=== PATIENT | female | born 1985 | race Caucasian/White ===

== ENCOUNTER 2018-02-10 20:48 | Outpatient (CLI) | payer OTHER | END 2018-02-10 23:12 | disposition home or self-care (01) | LOC: OBT 20:48 → L-D 20:48 → OBT 23:12 | DX: O62.9 Abnormality of forces of labor, unspecified (principal); Z3A.39 39 weeks gestation of pregnancy | CPT/HCPCS: Z7500 ==

== ENCOUNTER 2018-02-13 21:47 | Inpatient (IN) | payer OTHER ==
[2018-02-14] MEDS ORDERED: MISOPROSTOL 200 MCG TAB PR ×2 (01:00→12:00)
[2018-02-14] MEDS ORDERED: BUTORPHANOL 1 MG INJ IV (01:00)
[2018-02-14] MEDS ORDERED: OXYCODONE/ASPIRIN (4.88/325) TAB PO ×3 (01:00→12:00)
[2018-02-14] MEDS ORDERED: IBUPROFEN 600 MG TAB PO (01:00)
[2018-02-14] MEDS ORDERED: OXYTOCIN 30 UNITS/LR 500 ML IV ×3 (01:00→12:00)
[2018-02-14] MEDS ORDERED: CARBOPROST 250 MCG INJ IM ×2 (01:00→12:00)
[2018-02-14] MEDS ORDERED: BUTORPHANOL 2 MG INJ IV (01:00)
[2018-02-14] MEDS: LACTATED RINGER'S 1,000 ML IV ×2 (01:33→07:27)
[2018-02-14 01:39] LABS: RUPTURE FETAL MEMBRANES NEGATIVE (NEGATIVE)
[2018-02-14 01:58] LABS: ADD MAN DIFF? NO
[2018-02-14 02:01] LABS: BASOPHILS % 0.3 % (0.0-2.0); EOSINOPHILS # 0.2 10^3/ul (0.0-0.5); EOSINOPHILS % 1.8 % (0.0-7.0); HEMOGLOBIN 9.7 g/dl (12.0-16.0); LYMPHOCYTES % 23.9 % (15.0-51.0); MEAN CORPUSCULAR HEMOGLOBIN 24.3 pg (29.0-33.0); MEAN CORPUSCULAR HGB CONC 31.3 g/dl (32.0-37.0); MEAN CORPUSCULAR VOLUME 77.7 fl (82.0-101.0); MEAN PLATELET VOLUME 8.9 fl (7.4-10.4); MONOCYTE # 0.6 10^3/ul (0.3-0.9); MONOCYTES % 4.7 % (0.0-11.0); NEUTROPHIL # 8.5 10^3/ul (1.6-7.5); NEUTROPHILS % 68.8 % (39.0-77.0); PLATELET COUNT 389 10^3/UL (140-415); RED BLOOD COUNT 3.99 10^6/ul (4.20-5.40); RED CELL DISTRIBUTION WIDTH 15.4 % (11.5-14.5)
[2018-02-14 02:01] LABS: WHITE BLOOD COUNT 12.4 10^3/ul (4.8-10.8)
[2018-02-14] MEDS: MISOPROSTOL 50 MCG CAPSULE PO ×3 (02:20→09:00)
[2018-02-14 02:21] LABS: INR 0.91; PARTIAL THROMBOPLASTIN TIME 24.5 Sec (23.0-35.0); PROTIME 12.3 Sec (11.9-14.9)
[2018-02-14] MEDS: METHYLERGONOVINE 0.2 MG INJ IM (11:22)
[2018-02-14] MEDS: LIDOCAINE 1% (MPF) 30 ML INJ INJ (11:23)
[2018-02-14] MEDS: OXYTOCIN 30 UNITS/LR 500 ML IV ×3 (11:24→12:42)
[2018-02-14] MEDS ORDERED: METHYLERGONOVINE 0.2 MG INJ IM (12:00)
[2018-02-14] MEDS ORDERED: SENNA/DOCUSATE NA (8.6MG/50MG) TAB PO (12:00)
[2018-02-14] MEDS ORDERED: NACL 0.9% 3 ML SYG IV (12:00)
[2018-02-14] MEDS ORDERED: ONDANSETRON 4 MG INJ IV (12:00)
[2018-02-14] MEDS: IBUPROFEN 600 MG TAB PO ×3 (12:41→23:32)
[2018-02-14 13:14] LABS: HEPATITIS B SURFACE ANTIGEN NEGATIVE (NEGATIVE)
[2018-02-14] MEDS: BENZOCAINE 20% 56 ML SPRAY TOP (15:55)
[2018-02-14] MEDS: WITCH HAZEL/GLYCERIN PAD PR (15:55)
[2018-02-14] MEDS: LANOLIN HPA 1 PKT TOP (15:56)
[2018-02-14] MEDS: SENNA/DOCUSATE NA (8.6MG/50MG) TAB PO (21:17)
[2018-02-14 22:26] LABS: RAPID PLASMA REAGIN NONREACTIVE (NR)
[2018-02-15] MEDS: IBUPROFEN 600 MG TAB PO ×4 (05:34→23:42)
[2018-02-15 07:29] LABS: ADD MAN DIFF? NO
[2018-02-15 07:37] LABS: WHITE BLOOD COUNT 14.1 10^3/ul (4.8-10.8)
[2018-02-15 07:37] LABS: BASOPHIL # 0.1 10^3/ul (0.0-0.1); BASOPHILS % 0.4 % (0.0-2.0); EOSINOPHILS # 0.2 10^3/ul (0.0-0.5); EOSINOPHILS % 1.5 % (0.0-7.0); HEMATOCRIT 28.2 % (37.0-47.0); HEMOGLOBIN 8.8 g/dl (12.0-16.0); LYMPHOCYTES # 3.9 10^3/ul (0.8-2.9); LYMPHOCYTES % 27.5 % (15.0-51.0); MEAN CORPUSCULAR HEMOGLOBIN 24.4 pg (29.0-33.0); MEAN CORPUSCULAR HGB CONC 31.2 g/dl (32.0-37.0); MEAN CORPUSCULAR VOLUME 78.3 fl (82.0-101.0); MEAN PLATELET VOLUME 9.1 fl (7.4-10.4); MONOCYTE # 0.9 10^3/ul (0.3-0.9); MONOCYTES % 6.2 % (0.0-11.0); NEUTROPHILS % 63.8 % (39.0-77.0); PLATELET COUNT 353 10^3/UL (140-415); RED CELL DISTRIBUTION WIDTH 15.5 % (11.5-14.5)
[2018-02-15] MEDS: SENNA/DOCUSATE NA (8.6MG/50MG) TAB PO ×2 (09:15→20:42)
[2018-02-16] MEDS: IBUPROFEN 600 MG TAB PO ×2 (05:40→12:00)
[2018-02-16] MEDS: SENNA/DOCUSATE NA (8.6MG/50MG) TAB PO (09:38)
== END 2018-02-16 14:10 | disposition home or self-care (01) | DRG 807 ==
LOC: OBT 21:47 → L-D 02-14 01:11 → OBT 02-14 00:50 → L-D 02-14 00:50 → PP1 02-14 12:49
PROVIDERS: Obstetrics & Gynecology
PROC: 10E0XZZ Delivery of Products of Conception, External Approach (ICD-10-PCS; principal; 2018-02-14)
PROC: 0HQ9XZZ Repair Perineum Skin, External Approach (ICD-10-PCS; 2018-02-14)
DX: O48.0 Post-term pregnancy (principal); O70.0 First degree perineal laceration during delivery; Z37.0 Single live birth; Z3A.40 40 weeks gestation of pregnancy
CPT/HCPCS: 76815; 76818; 84112; 85025; 85610; 85730; 86592; 86850; 86900; 86901; 87340